=== PATIENT | female | born 1980 | race Caucasian/White ===

== ENCOUNTER 2021-06-02 09:29 | Emergency (ER) | payer MEDICAID ==
[~2021-06-02] VITALS: Ht 165.1 cm; Wt 67.0 kg
[2021-06-02] MEDS ORDERED: IBUPROFEN 400MG TABLET PO ONE (10:00)
[2021-06-02 11:03] VITALS: BP 118/77
== END 2021-06-02 11:05 | disposition home or self-care (01) ==
LOC: ER 09:29
DX: S89.82XA Other specified injuries of left lower leg, initial encounter (principal); W22.09XA Striking against other stationary object, initial encounter; Y93.89 Activity, other specified; Y92.013 Bedroom of single-family (private) house as the place of occurrence of the external cause
CPT/HCPCS: 73562; 81025; 99283

== ENCOUNTER 2021-06-23 09:15 | Emergency (ER) | payer MEDICAID, OTHER ==
[~2021-06-23] VITALS: Ht 167.6 cm; Wt 80.0 kg
[2021-06-23 10:30] LABS: BASOPHILS % 0.7 % (0.0-2.0); EOSINOPHILS % 1.6 % (0.0-5.0); HEMOGLOBIN. 14.3 g/dL (12.0-16.0); LYMPHOCYTES % 28.3 % (20.0-50.0); MEAN CORPUSCULAR HEMOGLOBIN 30.7 pg (28.0-32.0); MEAN CORPUSCULAR VOLUME 90.4 fL (81.0-99.0); MEAN PLATELET VOLUME 8.4 fl (7.4-10.4); MONOCYTES % 8.2 % (2.0-8.0); NEUTROPHILS % 61.2 % (40.0-76.0); PLATELET 406 x1000/uL (130-400); RED BLOOD CELL COUNT 4.64 mill/uL (4.2-5.4); RED CELL DISTRIBUTION WIDTH 13.4 % (11.6-14.6)
[2021-06-23 10:37] LABS: CHLORIDE 109 mEq/L (98-107)
[2021-06-23 11:37] VITALS: BP 118/58
[2021-06-23 12:06] LABS: HCG SCREEN NEGATIVE
== END 2021-06-23 11:53 | disposition home or self-care (01) ==
LOC: ER 09:15
DX: R00.2 Palpitations (principal); I10 Essential (primary) hypertension
CPT/HCPCS: 36415; 71045; 80053; 83880; 84484; 84703; 85025; 93005; 99285

== ENCOUNTER 2021-08-02 14:27 | Emergency (ER) | payer MEDICAID, OTHER ==
[~2021-08-02] VITALS: Ht 157.5 cm; Wt 78.0 kg
[2021-08-02 14:35] VITALS: BP 116/71
[2021-08-02] MEDS ORDERED: VISCOUS LIDOCAINE 2% 15 ML UDC PO STA (15:24)
[2021-08-02] MEDS ORDERED: MAGNESIUM/ALUMINUM HYDROXIDE/SIMETHICONE 30ML UDC PO STA (15:24)
[2021-08-02] MEDS ORDERED: FAMOTIDINE 20MG TABLET PO ONE (15:30)
[2021-08-02] MEDS ORDERED: MAG-55 MT (16:35)
[2021-08-02] MEDS ORDERED: FAMO-135 MT (16:35)
== END 2021-08-02 16:51 | disposition home or self-care (01) ==
LOC: ER 14:27
DX: K29.70 Gastritis, unspecified, without bleeding (principal); I10 Essential (primary) hypertension
CPT/HCPCS: 71045; 99284

== ENCOUNTER 2021-08-07 13:44 | Emergency (ER) | payer OTHER ==
[~2021-08-07] VITALS: Ht 157.5 cm; Wt 53.0 kg
[~2021-08-07 13:44] MED LIST: FAMO-135 MT; MAG-55 MT
[2021-08-07 13:47] VITALS: BP 116/79
[2021-08-07] MEDS ORDERED: ACETAMINOPHEN 325MG TABLET PO ONE (14:15)
[2021-08-07 14:36] LABS: CLARITY URINE TURBID (CLEAR); COLOR URINE YELLOW (YELLOW); KETONES URINE TRACE (NEGATIVE); LEUKOCYTE ESTERASE URINE 1+ (NEGATIVE); NITRITE URINE NEGATIVE (NEGATIVE); OCCULT BLOOD URINE 3+ (NEGATIVE); PH URINE 7.5 (4.5-8.0); PROTEIN URINE TRACE (NEGATIVE); SPECIFIC GRAVITY URINE 1.018 (1.005-1.030)
[2021-08-07] MEDS ORDERED: CEPH500C2 MT (15:20)
== END 2021-08-07 15:27 | disposition home or self-care (01) ==
LOC: ER 13:44
DX: N39.0 Urinary tract infection, site not specified (principal); F32.9 Major depressive disorder, single episode, unspecified; F20.9 Schizophrenia, unspecified
CPT/HCPCS: 73562; 81003; 99284

== ENCOUNTER 2021-11-18 12:27 | Emergency (ER) | payer OTHER ==
[~2021-11-18] VITALS: Ht 157.5 cm; Wt 59.0 kg
[~2021-11-18 12:27] MED LIST changes: +CEPH500C2 MT
[2021-11-18] MEDS ORDERED: ACET-2708 MT (13:36)
[2021-11-18] MEDS ORDERED: IBUPROFEN 600MG TABLET PO ONE (13:45)
[2021-11-18 13:54] VITALS: BP 114/73
== END 2021-11-18 13:55 | disposition home or self-care (01) ==
LOC: ER 12:37
DX: M25.519 Pain in unspecified shoulder (principal); I10 Essential (primary) hypertension; Z86.59 Personal history of other mental and behavioral disorders
CPT/HCPCS: 99282

== ENCOUNTER 2022-01-11 11:20 | Emergency (ER) | payer MEDICAID, OTHER ==
[~2022-01-11] VITALS: Ht 157.5 cm; Wt 62.0 kg
[~2022-01-11 11:20] MED LIST changes: +ACET-2708 MT
[2022-01-11 11:21] VITALS: BP 124/62
[2022-01-11] MEDS ORDERED: SODIUM CHLORIDE 0.9% 1,000 ML IV ONE (12:00)
[2022-01-11 12:47] LABS: BASOPHILS % 1.5 % (0.0-2.0); EOSINOPHILS % 2.1 % (0.0-5.0); HEMATOCRIT. 40.8 % (36.0-48.0); HEMOGLOBIN. 13.6 g/dL (12.0-16.0); LYMPHOCYTES % 30.2 % (20.0-50.0); MEAN CORPUSCULAR HEMOGLOBIN 30.8 pg (28.0-32.0); MEAN CORPUSCULAR VOLUME 92.2 fL (81.0-99.0); MEAN PLATELET VOLUME 8.2 fl (7.4-10.4); MONOCYTES % 6.5 % (2.0-8.0); NEUTROPHILS % 59.7 % (40.0-76.0); PLATELET 354 x1000/uL (130-400); RED BLOOD CELL COUNT 4.43 mill/uL (4.2-5.4)
[2022-01-11 12:57] LABS: CHLORIDE 107 mEq/L (98-107)
[2022-01-11 13:05] LABS: HCG SCREEN NEGATIVE
== END 2022-01-11 14:15 | disposition home or self-care (01) ==
LOC: ER 11:20
DX: R42 Dizziness and giddiness (principal); R53.1 Weakness; I10 Essential (primary) hypertension; F17.210 Nicotine dependence, cigarettes, uncomplicated; Z71.6 Tobacco abuse counseling; G40.909 Epilepsy, unspecified, not intractable, without status epilepticus
CPT/HCPCS: 36415; 80053; 84703; 85025; 93005; 99284; 99406; J7030

== ENCOUNTER 2022-07-17 17:32 | Emergency (ER) | payer MEDICAID, OTHER ==
[~2022-07-17] VITALS: Ht 167.6 cm; Wt 55.0 kg
[2022-07-17 17:36] VITALS: BP 120/76
[2022-07-17] MEDS ORDERED: P50 MT (18:54)
[2022-07-17] MEDS ORDERED: BENZ100C86 MT (18:54)
== END 2022-07-17 19:08 | disposition home or self-care (01) ==
LOC: ER 17:32
DX: R05.3 Chronic cough (principal); J44.9 Chronic obstructive pulmonary disease, unspecified; F17.210 Nicotine dependence, cigarettes, uncomplicated; Z71.6 Tobacco abuse counseling
CPT/HCPCS: 71045; 99283; 99406

== ENCOUNTER 2022-08-17 00:18 | Emergency (ER) | payer MEDICAID ==
[~2022-08-17] VITALS: Ht 157.5 cm; Wt 64.0 kg
[~2022-08-17 00:18] MED LIST changes: +BENZ100C86 MT; +P50 MT
[2022-08-17] MEDS ORDERED: ALBUTEROL (0.083%) 2.5MG/3ML NEB HHN STA (01:30)
[2022-08-17] MEDS ORDERED: METHYLPREDNISOLONE SOD SUCC 125 MG/2 ML VIAL IV STA (01:30)
[2022-08-17] MEDS ORDERED: ASPIRIN 81MG TABLET PO ONE (01:30)
[2022-08-17] MEDS ORDERED: IPRATROPIUM BROMIDE (0.02%) 0.5MG/2.5ML NEB HHN STA (01:30)
[2022-08-17 02:19] LABS: BASOPHILS % 1.2 % (0.0-2.0); EOSINOPHILS % 4.3 % (0.0-5.0); HEMATOCRIT. 37.5 % (36.0-48.0); LYMPHOCYTES % 21.6 % (20.0-50.0); MEAN CORPUSCULAR HEMOGLOBIN 31.6 pg (28.0-32.0); MEAN PLATELET VOLUME 7.9 fl (7.4-10.4); MONOCYTES % 6.4 % (2.0-8.0); NEUTROPHILS % 66.5 % (40.0-76.0); PLATELET 349 x1000/uL (130-400); RED BLOOD CELL COUNT 4.12 mill/uL (4.2-5.4); RED CELL DISTRIBUTION WIDTH 13.1 % (11.6-14.6)
[2022-08-17 02:40] LABS: CHLORIDE 110 mEq/L (98-107)
[2022-08-17 03:17] LABS: HCG SCREEN NEGATIVE
[2022-08-17 04:48] VITALS: BP 110/69
[2022-08-17] MEDS ORDERED: ALBU6.7H3 INH (05:37)
[2022-08-17] MEDS ORDERED: P20 MT (05:37)
== END 2022-08-17 06:19 | disposition home or self-care (01) ==
LOC: ER 00:28
DX: J44.1 Chronic obstructive pulmonary disease with (acute) exacerbation (principal); R06.2 Wheezing; I10 Essential (primary) hypertension; F20.9 Schizophrenia, unspecified; F32.A Depression, unspecified
CPT/HCPCS: 36415; 71045; 80053; 83880; 84484; 84703; 85025; 93005; 94644; 96374; 99285; J2930; Z7610

== ENCOUNTER 2023-06-09 15:43 | Emergency (ER) | payer MEDICAID ==
[~2023-06-09] VITALS: Ht 152.4 cm; Wt 58.0 kg
[~2023-06-09 15:43] MED LIST changes: +ALBU6.7H3 INH; +P20 MT
[2023-06-09 15:48] VITALS: BP 124/78; RESP 20; TEMP 98.8; O2SAT 99
[2023-06-09 16:13] VITALS: PULSE 98
== END 2023-06-09 18:55 | disposition left against medical advice (07) ==
LOC: ER 15:43
DX: M54.9 Dorsalgia, unspecified (principal); Z53.21 Procedure and treatment not carried out due to patient leaving prior to being seen by health care provider
CPT/HCPCS: 99281

== ENCOUNTER 2023-06-15 08:37 | Emergency (ER) | payer MEDICAID ==
[~2023-06-15] VITALS: Ht 152.4 cm; Wt 62.1 kg
[2023-06-15 08:48] VITALS: O2SAT 99
[2023-06-15] MEDS: KETOROLAC 60MG/2ML VIAL IM STA (11:36)
[2023-06-15 11:48] LABS: CLARITY URINE CLOUDY (CLEAR); COLOR URINE YELLOW (YELLOW); GLUCOSE URINE NEGATIVE (NEGATIVE); KETONES URINE NEGATIVE (NEGATIVE); LEUKOCYTE ESTERASE URINE TRACE (NEGATIVE); NITRITE URINE NEGATIVE (NEGATIVE); OCCULT BLOOD URINE NEGATIVE (NEGATIVE); PROTEIN URINE NEGATIVE (NEGATIVE); SPECIFIC GRAVITY URINE 1.012 (1.005-1.030)
[2023-06-15 12:14] LABS: BACTERIA URINE 1+; RBC URINE 0-2 /hpf (0-2); SQUAMOUS EPITHELIAL CELL URINE FEW /lpf (RARE/1+); YEAST URINE NONE SEEN
[2023-06-15] MEDS ORDERED: IBUP-2029 MT (14:43)
[2023-06-15] MEDS ORDERED: CYCL10TA21 MT (14:43)
[2023-06-15 14:55] VITALS: BP 135/86; PULSE 83; RESP 16; TEMP 97.8
== END 2023-06-15 14:57 | disposition home or self-care (01) ==
LOC: ER 08:42
DX: S30.0XXA Contusion of lower back and pelvis, initial encounter (principal); J44.9 Chronic obstructive pulmonary disease, unspecified; I10 Essential (primary) hypertension; Z79.899 Other long term (current) drug therapy; W18.39XA Other fall on same level, initial encounter; Y93.89 Activity, other specified; Y92.89 Other specified places as the place of occurrence of the external cause; Y99.8 Other external cause status
CPT/HCPCS: 72100; 81003; 81025; 99284; J1885

== ENCOUNTER 2023-10-19 13:38 | Emergency (ER) | payer MEDICAID ==
[~2023-10-19] VITALS: Ht 152.4 cm; Wt 62.0 kg
[~2023-10-19 13:38] MED LIST changes: +CYCL10TA21 MT; +IBUP-2029 MT
[2023-10-19 13:44] VITALS: BP 177/87; PULSE 82; RESP 18; TEMP 98.2; O2SAT 99
[2023-10-19] MEDS ORDERED: ACET-2708 MT (14:32)
[2023-10-19] MEDS ORDERED: LIDO700A15 TP (14:32)
== END 2023-10-19 15:09 | disposition home or self-care (01) ==
LOC: ER 13:38
DX: M54.50 Low back pain, unspecified (principal); I10 Essential (primary) hypertension; J44.9 Chronic obstructive pulmonary disease, unspecified; Z79.899 Other long term (current) drug therapy; W05.0XXA Fall from non-moving wheelchair, initial encounter; Y93.89 Activity, other specified; Y92.89 Other specified places as the place of occurrence of the external cause; Y99.8 Other external cause status
CPT/HCPCS: 99283

== ENCOUNTER 2025-02-10 13:40 | Emergency (ER) | payer MEDICAID ==
[~2025-02-10] VITALS: Ht 152.4 cm; Wt 62.0 kg
[~2025-02-10 13:40] MED LIST changes: +IBUP-1455 MT; -IBUP-2029 MT; +LIDO-53 TP
[2025-02-10 13:51] VITALS: O2SAT 98
[2025-02-10] MEDS: ACETAMINOPHEN 325MG TABLET PO ONE (14:34)
[2025-02-10 15:30] VITALS: BP 122/80; PULSE 79; RESP 18; TEMP 36.7; O2SAT 99
== END 2025-02-10 15:41 | disposition home or self-care (01) ==
LOC: ER 13:40
DX: S20.219A Contusion of unspecified front wall of thorax, initial encounter (principal); S09.8XXA Other specified injuries of head, initial encounter; M79.604 Pain in right leg; I10 Essential (primary) hypertension; J44.9 Chronic obstructive pulmonary disease, unspecified; W01.0XXA Fall on same level from slipping, tripping and stumbling without subsequent striking against object, initial encounter; Y93.89 Activity, other specified; Y92.89 Other specified places as the place of occurrence of the external cause; Y99.8 Other external cause status
CPT/HCPCS: 71045; 73562; 99284